=== PATIENT | female | born 1935 | race Caucasian/White ===

== ENCOUNTER → 2017-07-17 | Day surgery (SDC) | payer MEDICARE ==
[~2017-07-17] VITALS: Ht 175.3 cm; Wt 98.9 kg
[~2017-07-17] MED LIST: ACETAMINOPHEN 1000 MG/100 ML 100 ML IV ONE; CALC1TAB87 PO; CHLORHEXIDINE GLUCONATE 2 % 1 PACK (2 CLOTHS) TOPICAL PRN; DO NOT ADM ANY ANTICOAGULANT DRUGS PRN; INSULIN HUMAN REGULAR 1,000 UNITS/10 ML VIAL SQ PRN; KETOROLAC TROMETHAMINE 30 MG/ML (IVP) VIAL ONE; KETOROLAC TROMETHAMINE 60 MG/2 ML (IM) VIAL IM ONE; LACTATED RINGER'S 1000 ML IV PRN; LIDOCAINE HCL 1% PF 5 ML SYRINGE OTHER ONE; METOPROLOL TARTRATE 25 MG TAB PO PRN; MIDAZOLAM HCL 2 MG/2 ML VIAL ONE; MULT-65 PO; ONDANSETRON HCL 4 MG/2 ML VIAL IV ONE; PERC5TAB12 PO; POVIDONE IODINE 5% (ANTISEPSIS KIT) 4 APPLICATIONS EACH NARE PRN; PROPOFOL 200 MG/20 ML AMP IV ONE; SODIUM CHLORID 0.9% 500 ML IV PRN; VITA100021 SL; VITA100064 PO; oxyCODONE/ACETAMINOPHEN 5 MG/325 MG TAB PO PRN
[2017-07-17 07:39] LABS: AUTOMATED NEUTROPHIL # 2.7 TH/MM3 (1.8-7.7); BASOPHIL # 0.1 TH/MM3 (0-0.2); BASOPHIL % 1.4 % (0.0-2.0); EOSINOPHIL # 0.3 TH/MM3 (0-0.4); EOSINOPHIL % 4.5 % (0.0-4.0); HEMATOCRIT 40.5 % (35.0-46.0); LYMPH % 35.3 % (9.0-44.0); MEAN CELL VOLUME 92.2 FL (80.0-100.0); MEAN CORPUSCULAR HGB CONC 34.7 % (32.0-36.0); MEAN PLATELET VOLUME 9.5 FL (7.0-11.0); MONO % 10.5 % (0.0-8.0); MONOCYTE # 0.6 TH/MM3 (0-0.9); NEUT % 48.3 % (16.0-70.0); PLATELET COUNT 295 TH/MM3 (150-450); RED BLOOD COUNT 4.39 MIL/MM3 (4.00-5.30); RED CELL DISTRIBUTION WIDTH 13.2 % (11.6-17.2); WHITE BLOOD COUNT 5.6 TH/MM3 (4.0-11.0)
--- NOTE | 2017-07-17 09:49 | PD.OP ---
Operative Report Date of Surgery: Jul 17, 2017 Preoperative Diagnosis: (1) Thickened endometrium Postoperative Diagnosis: (1) Thickened endometrium Procedure: D&C and hysteroscopy Anesthesia: general villagomez Surgeon: Yinka Baltazar Gastroenterology Manager(s): Derik Oliva MS3 Yinka Baltazar MD Jul 17, 2017 09:49
[2017-07-17 10:30] VITALS: BP 159/72; PULSE 65; RESP 20; TEMP 97.7; O2SAT 98
--- NOTE | 2017-07-17 19:31 | MP ---
cc: YAZMIN BALTAZAR M.D. DATE OF SURGERY 07/17/2017 PROCEDURE Dilatation and curettage with hysteroscopy. PREOPERATIVE DIAGNOSIS Endometrial thickening POSTOPERATIVE DIAGNOSIS Endometrial thickening. SURGEON Dr. Yazmin Baltazar SIEVE MAKER Dulce Maria Oliva MS-3 ANESTHESIA General, Dr. Velazquez COMPLICATIONS None FINDINGS 7-week size anteverted uterus. No adnexal masses. Endometrium was thickened but no polyps seen. PROCEDURE IN DETAIL After informed consent the patient taken to the operating room where she was placed under general anesthesia placed in supine position legs in the [employer] stirrups. Abdomen, perineum and vagina prepped and draped in normal sterile fashion. After adequate anesthesia was assured and a time-out was taken a speculum was placed in the vagina. Cervix grasped with a single-tooth tenaculum. Cervix was dilated to accommodate a 4-mm hysteroscope. We passed the hysteroscope to the fundus. There was thickened lining on the left and right side, nothing at the fundal region and no endocervical pathology. At this point the hysteroscope was removed. A D&C was performed, fractional D&C and collecting from the endocervix first and the endometrium. Minimal tissue was obtained but all four quadrants were biopsied. At the end of procedure all instruments were removed. The patient had no active bleeding. She was taken to recovery room in stable condition. MD CARROLL Osborn/ZONIA /9:57 AM /7:09 PM
--- NOTE | 2017-07-18 08:30 | EKG ---
Date Performed: 07/17/2017 Time Performed: 07:10:13 PTAGE: 81 years EKG: Sinus rhythm MODERATE VOLTAGE CRITERIA FOR LVH, CONSIDER NORMAL VARIANT Compared to previous tracing there is chelsea dence for LVH BORDERLINE ECG PREVIOUS TRACING : 12/07/2011 04.55 DOCTOR: Charles Jacobs Interpretating Date/Time 07/18/2017 08:28:44
== END | disposition home or self-care (01) ==
LOC: HSDC 06:51
PROVIDERS: ATTEND Obstetrics & Gynecology
DX: R93.8 Abnormal findings on diagnostic imaging of other specified body structures (principal); N84.0 Polyp of corpus uteri; Z85.3 Personal history of malignant neoplasm of breast; Z01.810 Encounter for preprocedural cardiovascular examination; Z01.818 Encounter for other preprocedural examination
CPT/HCPCS: 00952; 58558; 85025; 88305; 93005; J0131; J1885; J2250; J2405; J3010